=== PATIENT | male | born 1930 | race American Indian/Alaskan Native ===

== ENCOUNTER 2017-03-07 11:04 | Day surgery (SDC) | payer OTHER ==
[~2017-03-07] VITALS: Ht 172.7 cm; Wt 80.0 kg
[2017-03-07 11:46] VITALS: BP 162/84
[2017-03-07] MEDS ORDERED: ASPI-496 PO (12:06)
[2017-03-07] MEDS ORDERED: ISOS30TA8 PO (12:06)
[2017-03-07] MEDS ORDERED: DILT120T3 PO (12:06)
[2017-03-07] MEDS ORDERED: CYAN25009 PO (12:06)
[2017-03-07] MEDS ORDERED: CHOL20003 PO (12:06)
[2017-03-07] MEDS ORDERED: FURO20TA3 PO (12:06)
[2017-03-07] MEDS ORDERED: LEVO50TA5 PO (12:06)
[2017-03-07] MEDS ORDERED: LACTATED RINGERS 1,000 ML IV SCH ×2 (12:07)
[2017-03-07] MEDS ORDERED: FENTANYL PF 100 MCG/2ML ONE (12:07)
[2017-03-07] MEDS ORDERED: MIDAZOLAM 1 MG/ML, 2ML ONE (12:08)
[2017-03-07] MEDS ORDERED: LIDOCAINE 1%, 2ML ONE (12:18)
[2017-03-07] MEDS ORDERED: ONDANSETRON 2MG/ML, 2ML IVPush PRN (12:30)
[2017-03-07] MEDS ORDERED: ACETAMINOPHEN 325 MG TABLET PO PRN (12:30)
[2017-03-07] MEDS ORDERED: LIDOCAINE 1%, 2ML SQ PRN ×2 (12:30)
[2017-03-07] MEDS ORDERED: LABETALOL 5MG/ML, 20ML IV PRN (12:30)
[2017-03-07] MEDS ORDERED: morphine SULFATE 10 MG/ML, 1ML IV PRN (12:30)
[2017-03-07] MEDS ORDERED: FENTANYL PF 100 MCG/2ML IV PRN (12:30)
[2017-03-07] MEDS ORDERED: OXYcodone 5 MG/5 ML ORAL.SOL UDC PO PRN (12:30)
== END 2017-03-07 15:00 | disposition home or self-care (01) ==
LOC: OUT 11:04
PROVIDERS: ATTEND Internal Medicine
DX: C20 Malignant neoplasm of rectum (principal); Z79.82 Long term (current) use of aspirin; I25.10 Atherosclerotic heart disease of native coronary artery without angina pectoris; Z95.1 Presence of aortocoronary bypass graft; I48.91 Unspecified atrial fibrillation; I10 Essential (primary) hypertension; E03.9 Hypothyroidism, unspecified; Z95.0 Presence of cardiac pacemaker
CPT/HCPCS: 43235; 45380; 88305; 93005; J2250; J3010; J3490; J7120

== ENCOUNTER 2017-03-26 05:52 | Day surgery (SDC) | payer OTHER ==
[~2017-03-26] VITALS: Ht 172.7 cm; Wt 80.0 kg
[~2017-03-26 05:52] MED LIST: ASPI-496 PO; CHOL20003 PO; CYAN25009 PO; DILT120T3 PO; FURO20TA3 PO; ISOS30TA8 PO; LEVO50TA5 PO
[2017-03-26] MEDS ORDERED: LACTATED RINGERS 1,000 ML IV SCH (06:45)
[2017-03-26 06:46] VITALS: BP 162/78
[2017-03-26 06:51] VITALS: BP 162/78
[2017-03-26] MEDS ORDERED: LIDOCAINE 1%, 2ML SQ PRN (07:00)
[2017-03-26 07:11] LABS: BLOOD UREA NITROGEN 22 mg/dL (7-18)
[2017-03-26 07:15] LABS: ASPARTATE AMINO TRANSFERASE 11 U/L (15-37)
[2017-03-26] MEDS ORDERED: MIDAZOLAM 1 MG/ML, 2ML ONE ×2 (07:25→07:26)
[2017-03-26] MEDS ORDERED: FENTANYL PF 100 MCG/2ML ONE ×2 (07:26)
[2017-03-26] MEDS ORDERED: PROPOFOL 10 MG/ML, 20ML ONE (07:51)
[2017-03-26] MEDS ORDERED: PHENYLEPHRINE 10 MG/ML ONE (07:51)
== END 2017-03-26 10:00 | disposition home or self-care (01) ==
LOC: OUT 05:52
PROVIDERS: ATTEND Internal Medicine Geriatric Medicine
DX: C20 Malignant neoplasm of rectum (principal); I48.91 Unspecified atrial fibrillation; E03.9 Hypothyroidism, unspecified; I10 Essential (primary) hypertension; Z95.810 Presence of automatic (implantable) cardiac defibrillator
CPT/HCPCS: 36415; 45341; 80053; J2250; J2370; J2704; J3010; J3490; J7120